=== PATIENT | female | born 1955 | race Caucasian/White ===

== ENCOUNTER 2024-01-27 19:01 | Observation (INO) | payer OTHER ==
[2024-01-27] MEDS ORDERED: Sodium Chloride 0.9% 10 ML Syringe FLUSH PRN (19:20)
[2024-01-27 19:21] LABS: BASOPHILS ABSOLUTE AUTO 0.03 10^3/uL (0.00-0.10); BASOPHILS PERCENT AUTO 0.4 % (0.0-1.0); EOSINOPHILS ABSOLUTE AUTO 0.13 10^3/uL (0.10-0.30); EOSINOPHILS PERCENT AUTO 1.9 % (1.0-3.0); HEMATOCRIT 36.6 % (37.0-47.0); HEMOGLOBIN 12.4 g/dL (12.0-16.0); IMMATURE GRAN ABSOLUTE AUTO 0.01 10^3/uL (0.00-0.50); IMMATURE GRAN PERCENT AUTO 0.1 % (0.0-5.0); LYMPHOCYTES ABSOLUTE AUTO 1.57 10^3/uL (1.00-4.00); LYMPHOCYTES PERCENT AUTO 23.2 % (20.0-40.0); MEAN CORPUSCULAR HEMOGLOBIN 31.1 pg (27.0-31.0); MEAN CORPUSCULAR HGB CONC 33.9 g/dL (32.0-36.0); MEAN CORPUSCULAR VOLUME 91.7 fL (82.0-92.0); MEAN PLATELET VOLUME 10.6 fL (7.4-10.4); MONOCYTES ABSOLUTE AUTO 0.59 10^3/uL (0.10-0.80); MONOCYTES PERCENT AUTO 8.7 % (2.0-8.0); NEUTROPHILS ABSOLUTE AUTO 4.44 10^3/uL (2.50-7.00); NEUTROPHILS PERCENT AUTO 65.7 % (50.0-70.0); PLATELET COUNT,PLT 216 10^3/uL (150-400); RED BLOOD CELL COUNT 3.99 10^6/uL (3.80-5.50); RED CELL DISTRIBUTION WIDTH 13.6 % (11.5-14.5); WHITE BLOOD CELL COUNT,WBC 6.77 10^3/uL (5.00-10.00)
[2024-01-27] MEDS: Sodium Chloride 0.9% 1,000 ML IV ONE (19:21)
[2024-01-27 19:34] LABS: ALBUMIN 3.81 g/dL (3.40-5.00); ANION GAP 18.7 mmol/L (5-15); BILIRUBIN TOTAL 0.6 mg/dL (0.2-1.0); CALCIUM 8.5 mg/dL (8.7-10.3); CARBON DIOXIDE,CO2 22.5 mmol/L (21.0-32.0); CREATININE 0.65 mg/dL (0.51-1.17); EST CRCL DRUG DOSING (CG) 60.33 mL/min; POTASSIUM,K 3.2 mmol/L (3.5-5.1); PROTEIN TOTAL,TP 7.1 g/dL (6.4-8.2)
[2024-01-27] MEDS ORDERED: Ondansetron 4 MG/2 ML SDV IV PRN (21:53)
[2024-01-27] MEDS ORDERED: Acetaminophen 325 MG Tab PO PRN (21:53)
[2024-01-27] MEDS ORDERED: Temazepam 15 MG Cap PO PRN (21:53)
[2024-01-27] MEDS: Potassium Chloride 10 MEQ Tab.ER PO ONE (22:19)
[2024-01-27] MEDS: atorvaSTATin 40 MG Tab PO SCH (22:19)
[2024-01-27] MEDS: Sodium Chloride 0.9% 1,000 ML IV SCH (22:24)
[2024-01-28 07:21] LABS: ANION GAP 17.7 mmol/L (5-15); CALCIUM 8.2 mg/dL (8.7-10.3); CARBON DIOXIDE,CO2 21.4 mmol/L (21.0-32.0); CREATININE 0.55 mg/dL (0.51-1.17); EST CRCL DRUG DOSING (CG) 71.29 mL/min; POTASSIUM,K 4.1 mmol/L (3.5-5.1)
[2024-01-28] MEDS ORDERED: Hydrochlorothiazide 12.5 MG Cap PO SCH (09:00)
[2024-01-28] MEDS ORDERED: Aspirin 81 MG Tab.EC PO SCH (09:00)
[2024-01-28] MEDS ORDERED: Losartan 50 MG Tab PO SCH (09:00)
[2024-01-28] MEDS ORDERED: Multivitamins with Minerals/Iron/Folic Acid/Lycopene Tab PO SCH ×2 (09:00)
== END 2024-01-28 08:42 | disposition home or self-care (01) ==
LOC: KA.ED 19:01 → KA.MS 20:24 → KA.ED 20:30
PROVIDERS: ADMIT Physician Assistant Surgical; ATTEND Family Medicine
DX: F10.920 Alcohol use, unspecified with intoxication, uncomplicated (principal); I10 Essential (primary) hypertension; E78.5 Hyperlipidemia, unspecified; Z79.899 Other long term (current) drug therapy
CPT/HCPCS: 36415; 80048; 80053; 80307; 85025; 96360; 96361; 99223-GT; 99239-GT; 99283; 99285-25; A9270-GY; G0378; J7030; Q3014